=== PATIENT | male | born 1970 | race Two or more races ===

== ENCOUNTER 2018-08-23 13:00 | Emergency (ER) | payer SELFPAY ==
[~2018-08-23] VITALS: Ht 182.9 cm; Wt 68.0 kg
[2018-08-23] MEDS ORDERED: HYDROCODONE/ACETAMINOPHEN 10/325MG TABLET PO ONE (15:45)
[2018-08-23 16:07] VITALS: BP 132/84
== END 2018-08-23 17:09 | disposition home or self-care (01) ==
LOC: ER 13:30
DX: S62.111A Displaced fracture of triquetrum [cuneiform] bone, right wrist, initial encounter for closed fracture (principal); V29.88XA Motorcycle rider (driver) (passenger) injured in other specified transport accidents, initial encounter; Y93.89 Activity, other specified; Y92.89 Other specified places as the place of occurrence of the external cause; Y99.8 Other external cause status
CPT/HCPCS: 29125; 73110; 73130; 99283; A4565

== ENCOUNTER 2025-03-23 11:52 | Emergency (ER) | payer OTHER ==
[~2025-03-23] VITALS: Ht 182.9 cm; Wt 75.0 kg
[~2025-03-23 11:52] MED LIST: LEVO-65 MT; TAMS-54 MT
[2025-03-23 11:58] VITALS: BP 113/76; PULSE 110; RESP 18; TEMP 36.5; O2SAT 100
== END 2025-03-23 14:26 | disposition left against medical advice (07) ==
LOC: ER 11:52
DX: T63.301A Toxic effect of unspecified spider venom, accidental (unintentional), initial encounter (principal); Z53.21 Procedure and treatment not carried out due to patient leaving prior to being seen by health care provider; X58.XXXA Exposure to other specified factors, initial encounter
CPT/HCPCS: 99281